=== PATIENT | female | born 1955 | race Caucasian/White ===

== ENCOUNTER → 2018-04-02 | Outpatient (CLI) | payer OTHER ==
--- NOTE | 2018-04-02 16:17 | RAD ---
Chest, 2 views, 04/02/2018: HISTORY: Cough, nasal congestion, chills The heart is at the upper limits of normal in size. There is mild tortuosity of the thoracic aorta. The pulmonary vascularity is normal. No pulmonary infiltrate is seen. There is no evidence of pleural fluid. IMPRESSION: 1. Borderline cardiomegaly. 2. No acute infiltrates Electronically signed by: Mak Chau MD (04/02/2018 4:09 PM) [facility]
== END | disposition home or self-care (01) ==
LOC: PMG 11:38
PROVIDERS: ATTEND Registered Nurse
DX: R05 Cough (principal); R09.81 Nasal congestion; R68.83 Chills (without fever)
CPT/HCPCS: 71046

== ENCOUNTER → 2018-07-17 | Outpatient (CLI) | payer OTHER ==
--- NOTE | 2018-07-17 13:29 | RAD ---
Right hand radiograph 07/17/2018 10:43 AM INDICATION: Right hand swelling between the first and second digit COMPARISON: None available. TECHNIQUE: 3 views of the right hand are provided. FINDINGS: There is no acute fracture or dislocation. Bone mineralization is within normal limits. Joint spaces are maintained. Soft tissue swelling is identified along the interspace between the first and second digit with possible air-fluid level within the soft tissues. No osseous erosion. IMPRESSION: No acute fracture or dislocation. There is possible air-fluid level within the soft tissues between the first and second digit. Further evaluation with ultrasound may be of benefit to assess for abscess. Electronically signed by: Maren Rivers MD (07/17/2018 1:26 PM) [id number]
== END | disposition home or self-care (01) ==
LOC: PMG 10:28
PROVIDERS: ATTEND Physician Assistant Medical
DX: M79.89 Other specified soft tissue disorders (principal)
CPT/HCPCS: 73130

== ENCOUNTER → 2018-07-31 | Outpatient (CLI) | payer OTHER ==
--- NOTE | 2018-07-31 14:02 | RAD ---
Sonography of the right hand Clinical indications: Right hand lump. FINDINGS: High-resolution sonography of the palpable lump of the right hand between the thumb and second digit was performed. There is a subcutaneous homogeneous hyperechoic solid nodule measuring 9 mm x 10 mm x 6 mm in size. No internal color Doppler flow is seen within it. IMPRESSION: Lump corresponds to a solid hyperechoic nodule by ultrasound. No internal color Doppler flow is seen. Therefore, differential diagnosis is hematoma or lipoma. A sarcoma cannot be excluded. Therefore, clinical follow-up is needed. Electronically signed by: Osmar Lugo MD (07/31/2018 1:59 PM) [id number]
== END | disposition home or self-care (01) ==
LOC: US 08:35
PROVIDERS: ATTEND Physician Assistant Medical
DX: R22.31 Localized swelling, mass and lump, right upper limb (principal)
CPT/HCPCS: 76881

== ENCOUNTER → 2020-06-07 | Outpatient (CLI) | payer MEDICARE, OTHER ==
--- NOTE | 2020-06-07 13:49 | RAD ---
Bone densitometry study: Date: 06/07/2020. Indication: Osteopenia.. 64-year-old female with a history of celiac sprue. She is on daily thyroid medication and calcium supplementation (up to 500 mg per day). She is also on hormone replac ement therapy. Procedure: DEXA study. Findings: The bone mineral density from L1 through L4 is 1.226 grams/cm squared with T-score 0.4. The bone mineral density in the right hip involving the neck of the right femur is 0.858 grams per cm squared with a T-score of -0.8. Impression: Normal mineral density in the lumbar spine and right hip Electronically signed by: Per Sarabia MD (06/07/2020 1:46 PM) [id number]
== END ==
LOC: DXRAD 09:37
PROVIDERS: ATTEND Physician Assistant Medical
DX: Z01.419 Encounter for gynecological examination (general) (routine) without abnormal findings (principal); Z78.0 Asymptomatic menopausal state
CPT/HCPCS: 77080